=== PATIENT | male | born 1985 | race Two or more races ===

== ENCOUNTER 2018-02-26 20:55 | Emergency (ER) | payer SELFPAY ==
[~2018-02-26] VITALS: Ht 170.2 cm; Wt 91.0 kg
[2018-02-26] MEDS ORDERED: SODIUM CHLORIDE 0.9% 1,000 ML IV ONE (22:51)
[2018-02-26] MEDS ORDERED: ONDANSETRON HCL 4MG/2ML INJ IV STA (22:51)
[2018-02-26] MEDS ORDERED: LORAZEPAM 2MG/ML CPJ IV ONE (23:00)
[2018-02-26 23:24] LABS: *BARBITURATES SCREEN URINE NEGATIVE (NEGATIVE); *BENZODIAZEPINES SCREEN URINE NEGATIVE (NEGATIVE); *COCAINE SCREEN URINE PRESUMTIVE POSITIVE (NEGATIVE)
[2018-02-26 23:25] LABS: *AMPHETAMINES SCREEN URINE NEGATIVE (NEGATIVE); CANNABINOID URINE SCREEN NEGATIVE (NEGATIVE); METHADONE URINE SCREEN NEGATIVE (NEGATIVE); OPIATES URINE SCREEN NEGATIVE (NEGATIVE); PHENCYCLIDINE URINE SCREEN NEGATIVE (NEGATIVE)
[2018-02-27 00:10] LABS: BASOPHILS % 0.6 % (0.0-2.0); EOSINOPHILS % 0.3 % (0.0-5.0); HEMOGLOBIN. 16.4 g/dL (14.0-18.0); MEAN CORPUSCULAR HEMOGLOBIN 30.5 pg (28.0-32.0); MONOCYTES % 8.1 % (2.0-8.0); PLATELET 339 x1000/uL (130-400); RED CELL DISTRIBUTION WIDTH 13.7 % (11.6-14.6)
[2018-02-27 00:12] LABS: CHLORIDE 102 mEq/L (98-107)
[2018-02-27 00:15] LABS: ETHANOL BLOOD 16 mg/dL
[2018-02-27 03:08] VITALS: BP 114/62
== END 2018-02-27 03:14 | disposition home or self-care (01) ==
LOC: ER 20:55
DX: R00.2 Palpitations (principal); F14.10 Cocaine abuse, uncomplicated; R07.89 Other chest pain; F17.200 Nicotine dependence, unspecified, uncomplicated
CPT/HCPCS: 36415; 71045; 80053; 80305; 84484; 85025; 93005; 96374; 96375; 99284; 99406; G0482; J2060; J2405; J7030